=== PATIENT | male | born 2000 ===

== ENCOUNTER 2022-09-19 12:09 | Emergency (ER) | payer OTHER, SELFPAY ==
[2022-09-19 12:37] VITALS: BP 113/75; PULSE 83; RESP 16; TEMP 36.7; O2SAT 97; BMI 25.8
--- NOTE | 2022-09-19 12:37 | ED.GENADULT ---
HPI - General Adult General Chief complaint: Urogenital-Male Stated complaint: hemorrhoid ? Time Seen by Provider: 09/19/22 13:08 Source: patient and RN notes reviewed Mode of arrival: ambulatory Limitations: no limitations History of Present Illness HPI narrative: This is a 22-year-old male presenting to the emergency department for evaluation of pain and itching at rectum x 2 days. Pt endorses constipation, last bowel movement was two days ago and was hard and had to strain. He denies any fevers, chills, chest pain, shortness of breath, abdomoinal pain, nausea, vomiting, or diarrhea. Denies taking any medications at home to treat his symptoms. No other complaints or concerns at this time. MD complaint: Rectal pain/itching. Onset (ago): day(s) Relieving factors: none Exacerbating factors: none Associated symptoms: denies other symptoms Treatments prior to arrival: none Related Data Previous Rx's Medication Instructions Recorded docusate calcium 240 mg capsule 240 mg PO DAILY #30 caps 09/19/22 hydrocortisone 1 %-pramoxine 1 % 1 appl ME QID PRN itching #10 grams 09/19/22 rectal foam (Proctofoam HC) polyethylene glycol 3350 17 17 g PO DAILY #119 grams 09/19/22 gram/dose oral powder (Miralax) Allergies Allergy/AdvReac Type Severity Reaction Status Date / Time No Known Allergies Allergy Verified 09/19/22 12:40 [No Known Allergies*] Review of Systems Review of Systems: Yes all other systems are reviewed and are negative Constitutional: Constitutional: Reports as per [facility] Social History Social History Advance Directives: No Physical Exam ED Vital Signs: Vital Signs - 24 hr 09/19/22 12:37 Temperature 98.1 F Pulse Rate 83 Respiratory Rate 16 Blood Pressure 113/75 Pulse Oximetry 97 Oxygen Delivery Method Room Air BMI result Body Mass Index 25.8 Const General: cooperative, comfortable and no acute distress Orientation/consciousness: patient oriented x3 Limitations: no limitations HENMT Head: Yes normal to inspection, Yes normocephalic and Yes atraumatic Ears: hearing grossly normal bilaterally General nose exam: Normal external nose present Face and sinus: Yes normal facial exam Mouth: Normal oral and palatal mucosa present, oropharynx normal and moist mucous membranes Throat: Yes posterior oropharynx normal Eyes General: appearance normal, both eyes and all related structures Eyelids: Yes eyelids normal Conjunctivae: conjunctivae normal Sclerae: sclerae normal Pupils: Equal, round and reactive pupils present EOM: EOMs intact bilaterally Neck Neck: Yes normal visual inspection, Yes full ROM and Yes no lymphadenopathy Lymphatic: no lymphadenopathy noted Chest Chest palpation & inspection: normal inspection of the chest Resp Effort & Inspection: normal respiratory effort and able to speak in complete sentences Auscultation: clear to auscultation bilaterally, no crackles, no rales, no rhonchi and no wheezes Cardio Rate: regular rate Rhythm: regular rhythm Heart sounds: S1 normal heart sound present and S2 normal heart sound present GI Other: Rectal exam performed with Kacie frank RN, present. No external or internal hemorroids present. No rectal erythema, edema or excoriations noted. Rectal tone intact. No evidence of rectal prolapse, drainage or discharge. Inspection: Yes normal to inspection Skin General skin exam: no rashes or lesions noted Trauma: no lacerations or abrasions Wounds: no wounds Neuro General: patient oriented x3 and moves all extremities Cranial nerves: Yes Equal, round and reactive pupils present Extrem General: Yes normal to inspection Right upper extremity: normal to inspection Left upper extremity: normal to inspection Right lower extremity: normal to inspection Left lower extremity: normal to inspection Course Course Course Narrative: This is a rapid medical exam: Additional HPI, ROS, PE not included below will be deferred to primary provider. Patient is a 22-year-old male presenting to the emergency department with two days of rectal pain and pain with bowel movements for two days. Reports some constipation. Denies any rectal bleeding. Reports some rectal itching. No known history of hemorrhoids. Area not assessed in triage due to privacy concerns. Medical Decision Making Medical Decision Making [facility] Narrative: 22 y/o M presenting to the ER with complaints of rectal pain and itching x 2 days. Pt reports he has had constipation. Rectal exam benign, no evidence of rectal prolapse or hemmoroids. Abdomen is soft, nontender, nondistended. D/c pt with constipation medication and protafoam. Advised to return with any new or worsening symptoms. Pt reporting he is sexually active, not concerned for STIs but willing to give urine sample for r/o. VSS. Presentation not consistent with acute bowel obstruction caused by tumor, stricture, hernia, adhesion, volvulus or fecal impaction. Presentation not consistent with other acute, emergent causes of constipation at this time. Pt given return precautions. Pt understands and agrees with plan. Pt stable for discharge. Differential Diagnosis Differential Diagnoses: The differential diagnosis associated with the presentation includes hemmoroids, constipation, rectal prolapse, anorectal abscess - unlikely. Lab Data Labs: Lab Results 09/19/22 Range/Units 14:23 Chlam trachomat DNA PCR NOT DETECTED (Not Detect.) N.gonorrhoeae DNA (PCR) NOT DETECTED (Not Detect.) Discharge Plan Discharge Clinical Impression: Constipation Patient Disposition: Home, Self-Care Instructions: Constipation (ED) Additional Instructions: Your symptoms are likely due to constipation. Please use prescribed medication as directed. Drink plenty of fluids. We are sending your urine out for gonorrhea/chlamydia testing, we will call you with any abnormal results. If any new or worsening symptoms occur including but not limited to fevers, chills, worsening rectal pain, unable to produce bowel movement, please return for re-evaluation. Prescriptions: New Proctofoam HC 1-1 % foam 1 appl ME QID PRN (Reason: itching) Qty: 10 0RF polyethylene glycol 3350 [Miralax] 17 gram/dose powder 17 g PO DAILY Qty: 119 0RF docusate calcium 240 mg capsule 240 mg PO DAILY Qty: 30 0RF Interventions: ED Discharge Assessment Last Done: 09/19/22 14:24 Discharge Date/Time: 09/19/22 14:24
[2022-09-19 16:10] LABS: CT PCR NOT DETECTED (Not Detect.); NG PCR NOT DETECTED (Not Detect.)
== END 2022-09-19 14:24 | disposition home or self-care (01) ==
PROVIDERS: Physician Assistant Medical; Emergency Provider Student in an Organized Health Care Education/Training Program
DX: K59.00 Constipation, unspecified (principal); K62.89 Other specified diseases of anus and rectum; L29.0 Pruritus ani
CPT/HCPCS: 0353U; 99283